=== PATIENT | male | born 1960 | race Caucasian/White ===

== ENCOUNTER 2020-06-02 06:48 | Outpatient (NON) | payer BC, SELFPAY ==
[2020-06-02 11:50] LABS: Influenza Control Positive
[2020-06-02 23:39] LABS: SARS-CoV-2 RNA PCR Negative
== END 2020-06-02 06:49 ==
PROVIDERS: PCP Family Medicine; Visit Provider Family Medicine
DX: R05 Cough (principal); Z20.822 Contact with and (suspected) exposure to COVID-19
CPT/HCPCS: 87804; C9803; U0003

== ENCOUNTER 2020-06-23 01:29 | Outpatient (CLI) | payer BC, SELFPAY ==
[2020-06-23 18:46] LABS: SARS-CoV-2 RNA PCR Negative
== END 2020-06-23 01:30 | disposition home or self-care (01) ==
LOC: ANHCOVIDDT 01:29
PROVIDERS: PCP Family Medicine; Visit Provider Internal Medicine Gastroenterology
DX: Z01.812 Encounter for preprocedural laboratory examination (principal); Z20.822 Contact with and (suspected) exposure to COVID-19
CPT/HCPCS: C9803; U0003; U0005

== ENCOUNTER 2020-06-27 01:21 | Day surgery (SDC) | payer BC, SELFPAY ==
[2020-06-19 10:03] VITALS: BMI 36.8
--- NOTE | 2020-06-27 09:45 | P.PNAN_ITS ---
Anes - Initial Pre Proc Eval Procedure: Operation Date: 06/27/20 11:45 Proposed Procedures p Esophagogastroduodenoscopy - Veto Altamirano MD Date/Time: 06/27/20 09:45 Surgeon: Veto Altamirano MD Pre Op Diagnosis: GERD Patient Data Age: 59 Gender: M Height: 1.75 m Weight: 113 kg Allergies Allergy/AdvReac Type Severity Reaction Status Date / Time epinephrine Allergy Unknown Syncope Verified 06/27/20 10:38 Home Medications Medication Instructions Recorded Confirmed Type albuterol sulfate 90 mcg/actuation 1 puff INHALATION Q4H PRN #8.5 gm 06/13/19 06/27/20 Rx aerosol inhaler budesonide-formoterol HFA 80 2 inh INHALATION Q12H #10.2 gm 05/21/20 06/27/20 Rx mcg-4.5 mcg/actuation aerosol inhaler fluoxetine [Prozac] 60 mg PO DAILY 06/19/20 06/27/20 History omeprazole 40 mg PO BID 06/19/20 06/27/20 History Patient hx anesthesia problems: none Family hx anesthesia problems: none [facility] Past Medical History Medical History (Updated 06/27/20 @ 09:46 by Cecil Heck MD) Asthma, moderate persistent Depression GERD (gastroesophageal reflux disease) Obesity DIEGO on CPAP Surgical History Surgical History H/O hernia repair History of laparoscopic cholecystectomy Family History Family History Mother Family history of Alzheimer's disease Family history of emphysema Other Diabetes mellitus Social History Social History Smoking status: Never smoker Second hand tobacco smoke exposure: No Alcohol intake: never Substance use: never Substance use type: does not use Living arrangements: with family Gender identity (if verbalized by the patient): Male Spiritual care concerns: No Anes - Eval Final PreProcedure Day of Procedure 06/27/20 09:45 Patient weight: obese Heart: regular rate and rhythm Lungs: clear to auscultation and normal air movement Airway: Mallampati scale class II Neurological: alert and oriented Last oral intake: >/= 8 hours ASA classification: III Emergent: no Anesthetic plan: proceed Anesthesia type and monitoring: general GIVS Informed Consent: The patient's anesthetic plan and its attendant risks and benefits were discussed with the patient/family/POA. Questions were solicited and answers provided to the satisfaction of the patient/family/POA.
[2020-06-27 10:39] VITALS: BP 132/88; PULSE 69; RESP 18; TEMP 36.2; O2SAT 99
[2020-06-27] MEDS: LACTATED RINGERS 1,000 ML 150 ML IV CONT (10:47)
--- NOTE | 2020-06-27 11:50 | WPDHPUPDATE1 ---
History and Physical Update Update Date/Time: 06/27/20 11:50 History and Physical has been reviewed, including an updated exam of the patient. There are NO changes in the patient's condition. Risks, benefits, and alternatives have been discussed and questions answered. Patient agrees to proceed with procedure.
[2020-06-27 12:03] VITALS: BP 112/75; PULSE 80; RESP 22; O2SAT 96
[2020-06-27 12:13] VITALS: BP 130/87; PULSE 68; RESP 22; O2SAT 97
[2020-06-27 12:23] VITALS: BP 132/87; PULSE 62; RESP 20; O2SAT 99
== END 2020-06-27 12:32 | disposition home or self-care (01) ==
PROVIDERS: Visit Provider Internal Medicine Gastroenterology
PROC: 0DJ08ZZ Inspection of Upper Intestinal Tract, Via Natural or Artificial Opening Endoscopic (ICD-10-PCS; CPT 43235; principal; 2020-06-27 11:45)
DX: K21.9 Gastro-esophageal reflux disease without esophagitis (principal); K29.50 Unspecified chronic gastritis without bleeding; K44.9 Diaphragmatic hernia without obstruction or gangrene; Z79.51 Long term (current) use of inhaled steroids; F32.9 Major depressive disorder, single episode, unspecified; G47.33 Obstructive sleep apnea (adult) (pediatric); J45.909 Unspecified asthma, uncomplicated; E66.9 Obesity, unspecified; Z68.36 Body mass index [BMI] 36.0-36.9, adult
CPT/HCPCS: 43239; 88305; J2704; J7120

== ENCOUNTER 2021-03-06 09:35 | Outpatient (CLI) | payer BC, SELFPAY ==
--- NOTE | ~2021-03-06 | XR_ITS ---
XR chest 2V DATE: 03/06/2021 09:50 INDICATION: Cough. Asthma. TECHNIQUE: PA and lateral views COMPARISON: None FINDINGS: Minimal bibasilar atelectasis is suggested. Heart size is within normal limits. No hilar or mediastinal enlargement. No pleural effusion or pulmo nary vascular congestion or pneumothorax. Diffuse osteopenia. IMPRESSION: Minimal bibasilar atelectasis . Reviewed, dictated and finalized at location B.
[2021-03-06 10:19] LABS: Basophils Absolute Auto 0.1 K/mm3 (0.0-0.1); Basophils Percent Auto 0.7 % (0.2-1.2); Eosinophils Absolute Auto 0.2 K/mm3 (0-0.3); Eosinophils Percent Auto 2.5 % (0-4.4); Hematocrit 44.1 % (42.0-52.0); Hemoglobin 14.7 g/dL (14.0-18.0); Immature Granulocyte Absolute 0.03 K/mm3 (0.00-0.031); Immature Granulocyte Percent A 0.4 % (0-0.5); Lymphocytes Absolute Auto 1.27 K/mm3 (0.9-3.2); Lymphocytes Percent Auto 16.5 % (18.3-44.2); Mean Corpuscular HGB Conc 33.3 g/dl (32-36); Mean Corpuscular Hemoglobin 30.4 pg (26-34); Mean Corpuscular Volume 91.3 fl (80-100); Mean Platelet Volume 10.1 fl (7.4-10.4); Monocytes Absolute Auto 0.6 K/mm3 (0.1-0.6); Monocytes Percent Auto 8.1 % (2.6-8.5); Neutrophils Absolute Auto 5.5 K/mm3 (1.3-6.7); Neutrophils Percent Auto 71.8 % (45.5-73.1); Platelet Count Result 271 k/mm3 (150-375); Red Blood Count 4.83 M/mm3 (4.6-6.20); Red Cell Distribution Width 12.8 % (11.5-14.5); White Blood Count 7.7 K/mm3 (4.5-10.0)
[2021-03-09 11:12] LABS: Alpha-1-Antitrypsin, QN 127 mg/dL (83-199)
[2021-03-11 07:10] LABS: Immunoglobulin E 91 kU/L (<=114)
== END 2021-03-06 09:36 | disposition home or self-care (01) ==
LOC: ANHLAB 09:37
PROVIDERS: PCP Family Medicine; Visit Provider Internal Medicine Critical Care Medicine
DX: J45.40 Moderate persistent asthma, uncomplicated (principal)
CPT/HCPCS: 36415; 71046; 82103; 82104; 82785; 85025

== ENCOUNTER 2021-03-25 08:33 | Outpatient (CLI) | payer BC, SELFPAY ==
--- NOTE | 2021-03-25 13:41 | WPDPFTINT ---
PFT Procedure Performed PFT Procedure Performed Spirometry with Pre/Post Bronchodilator Plethysmography (Lung Vol) Diffusing Cap (DLCO) Flow Vol Loop PFT Interpretation Lung volumes were measured with the body plethysmography method. The lung volumes are unremarkable. Spirometry showed normal expiratory flow rates and a normal FEV1 to FVC ratio 73%. Following administration of a bronchodilator there was no significant increase in the expiratory flow rates. Lung diffusion capacity is within the normal range. The flow volume loop is unremarkable. Impression: Spirometry, lung volumes, and lung diffusion capacity all within the normal range.
== END 2021-03-25 08:34 | disposition home or self-care (01) ==
PROVIDERS: PCP Family Medicine; Visit Provider Internal Medicine Critical Care Medicine
DX: J45.40 Moderate persistent asthma, uncomplicated (principal)
CPT/HCPCS: 94060; 94726; 94729

== ENCOUNTER 2021-07-30 14:35 | Outpatient (CLI) | payer BC, SELFPAY ==
--- NOTE | 2021-07-31 12:06 | WPDPFTINT ---
PFT Procedure Performed PFT Procedure Performed Spirometry with Pre/Post Bronchodilator Plethysmography (Lung Vol) Diffusing Cap (DLCO) Flow Vol Loop PFT Interpretation Lung volumes were measured with the body plethysmography method. The diminished expiratory reserve volume is due to obesity. The remainder lung volumes are unremarkable. Spirometry showed normal expiratory flow rates and a normal FEV1 to FVC ratio 73%. Following administration of a bronchodilator there was no significant change in the expiratory flow rates. Lung diffusion capacity is within the normal range. In comparison to previous study in March of 2021, spirometry, lung volumes, and lung diffusion capacity are all essentially unchanged. Impression: Spirometry, lung volumes, and lung diffusion capacity all within the normal range.
== END 2021-07-30 14:36 | disposition home or self-care (01) ==
LOC: ANHPFT 14:38
PROVIDERS: PCP Family Medicine; Visit Provider Internal Medicine Critical Care Medicine
DX: J45.40 Moderate persistent asthma, uncomplicated (principal)
CPT/HCPCS: 94060; 94726; 94729

== ENCOUNTER → 2022-06-24 09:39 | Outpatient (CLI) | payer BC, SELFPAY ==
--- NOTE | ~2022-06-24 | XR_ITS ---
EXAMINATION: XR chest 2V DATE: 06/24/2022 10:07 INDICATION: Asthma exacerbation TECHNIQUE: PA and lateral views of the chest are obtained. COMPARISON: 03/06/2021 FINDINGS: There is mild atelectasis of the left lung base. No pleural effusion or pneumothorax. The c ardiomediastinal silhouette is normal. There is moderate thoracic spondylosis. IMPRESSION: 1. Mild atelectasis of the left lung base. Reviewed, dictated and finalized at location L. [facility] [employer]
== END ==
PROVIDERS: PCP Family Medicine; Visit Provider Physician Assistant Medical
DX: J45.901 Unspecified asthma with (acute) exacerbation (principal)
CPT/HCPCS: 71046

== ENCOUNTER 2022-12-08 04:02 | Day surgery (SDC) | payer BC, SELFPAY ==
[2022-11-27 13:39] VITALS: BMI 31.6
[2022-12-08 08:40] VITALS: BP 121/79; PULSE 93; RESP 18; TEMP 36.6; O2SAT 100; BMI 31.1
[2022-12-08] MEDS: LACTATED RINGERS 1,000 ML 150 ML IV CONT (09:02)
--- NOTE | 2022-12-08 09:09 | WPDANESEPPF ---
Anes - Initial Pre Proc Eval Procedure: Operation Date: 12/08/22 10:00 Proposed Procedures p Screening Colonoscopy - Veto Altamirano MD Date/Time: 12/08/22 09:09 Surgeon: Veto Altamirano MD Pre Op Diagnosis: neoplasm screening Patient Data Age: 62 Gender: M Height: 1.78 m Weight: 98.4 kg Last Vital Signs Temp 97.8 F 12/08/22 08:40 Pulse 93 12/08/22 08:40 Resp 18 12/08/22 08:40 BP 121/79 12/08/22 08:40 Pulse Ox 100 12/08/22 08:40 O2 Del Method Room Air 12/08/22 08:40 Allergies Allergy/AdvReac Type Severity Reaction Status Date / Time epinephrine Allergy Unknown Syncope Verified 11/13/22 11:55 Home Medications Medication Instructions Recorded Confirmed Type omeprazole 20 mg capsule,delayed 20 mg PO BID #90 caps 11/01/20 11/27/22 Rx release sildenafil 100 mg tablet (Viagra) 100 mg PO DAILY PRN sexual 02/04/21 11/27/22 Rx activity #8 tabs cholecalciferol (vitamin D3) 25 25 mcg PO DAILY 07/11/21 11/27/22 History mcg (1,000 unit) chewable tablet (Vitamin D3) montelukast 10 mg tablet 10 mg PO DAILY #90 tabs 02/13/22 11/27/22 Rx (Singulair) budesonide-formoterol HFA 160 2 puff inhalation BID 90 days 05/20/22 11/27/22 Rx mcg-4.5 mcg/actuation aerosol #30.6 grams inhaler (Symbicort) albuterol sulfate 90 mcg/actuation 1 puff inhalation Q4H PRN 06/10/22 11/27/22 Rx aerosol inhaler (ProAir HFA) shortness of breath #8.5 grams albuterol sulfate 2.5 mg/3 mL 2.5 mg (3 mL) inhalation Q4-6H PRN 06/24/22 11/27/22 Rx (0.083 %) solution for nebulization shortness of breath or wheezing #180 mL fluoxetine 20 mg capsule (Prozac) 20 mg PO DAILY #90 caps 09/24/22 11/27/22 Rx alprazolam 0.5 mg tablet 0.5 mg PO TID #30 tabs 10/10/22 11/27/22 Rx hydroxyzine HCl 25 mg tablet 25 mg PO TID PRN itching #90 tabs 11/02/22 11/27/22 Rx trazodone 50 mg tablet 50 mg PO QHS PRN insomnia #30 tabs 11/02/22 11/27/22 Rx amphetamine 9.4 mg extended 9.4 mg PO DAILY 11/04/22 11/27/22 History release-disintegrating 24 hr tablet (Adzenys XR-ODT) Patient hx anesthesia problems: none Family hx anesthesia problems: none Results Review: All pre-operative results and documents have been reviewed as part of the pre-operative evaluation. [facility] Past Medical History Medical History (Updated 06/24/22 @ 09:07 by Arlene Cherry PA-C) Asthma exacerbation Asthma, moderate persistent Depression GERD (gastroesophageal reflux disease) Obesity DIEGO on CPAP PVC's (premature ventricular contractions) Surgical History Surgical History H/O hernia repair H/O knee surgery Torn meniscus, Repair November 2021 History of laparoscopic cholecystectomy Family History Family History Mother Family history of Alzheimer's disease Family history of emphysema Son Colon cancer Other Diabetes mellitus Social History Social History Smoking status: Never smoker Second hand tobacco smoke exposure: No Alcohol intake: never Substance use: never Substance use type: does not use Lack of Transportation: No Lack of Food: Never True Current Housing: I Have Housing Concerned About Future Housing: No Difficulty Paying Gas/Electric Bills: No Difficulty Paying for Meds: No Currently Unemployed: No Education: Bachelor's Degree Difficulty w/ Childcare or Family Care: No Living arrangements: with family Occupation/Education: retired Gender identity (if verbalized by the patient): Male Spiritual care concerns: No Anes - Eval Final PreProcedure Day of Procedure 12/08/22 09:09 Patient weight: normal Heart: regular rate and rhythm Lungs: clear to auscultation Airway: Mallampati scale class II Neurological: alert and oriented Last oral intake: >/= 8 hours ASA classif
--- NOTE | 2022-12-08 09:29 | PM.HPGS ---
History of Present Illness History of Present Illness Consent: Risks, benefits, and alternatives have been discussed and questions answered. Patient agrees to proceed with procedure. Chief complaint: neoplasm screening Narrative: Carlo Jesus is a 62 year old male with last colonoscopy 5 years ago, son had colon cancer at 30's, had 2 months on alternating diarrhea and constipation now better, used imodium. Review of Systems Constitutional: Constitutional: Denies headache(s) and Denies weakness Eyes: Eyes: Denies blurry vision ENT: Reports Normal hearing present, Denies headache(s) and Denies neck pain Cardiovascular: Cardiovascular: Denies chest pain and Denies dyspnea Respiratory: Respiratory: Denies dyspnea Gastrointestinal: Gastrointestinal: Reports no additional gastrointestinal complaints Genitourinary: Genitourinary: Denies dysuria Musculoskeletal: Musculoskeletal: Denies neck pain Integumentary/Breasts: Skin/Breast: Denies dry skin Neurologic: Reports Normal hearing present, Denies headache(s) and Denies weakness Psychiatric: Psychiatric: Denies anxiety Endocrine: Endocrine: Denies change in body appearance Hematologic/Lymphatic: Hematologic/Lymphatic: Denies easy bleeding Allergic/Immunologic: Allergic/Immunologic: Denies urticaria PMFSH Past Medical History Medical History (Updated 12/08/22 @ 09:30 by Veto Altamirano MD) Alternating constipation and diarrhea Asthma exacerbation Asthma, moderate persistent Depression Family history of colon cancer GERD (gastroesophageal reflux disease) Obesity DIEGO on CPAP PVC's (premature ventricular contractions) Surgical History Surgical History H/O hernia repair H/O knee surgery Torn meniscus, Repair November 2021 History of laparoscopic cholecystectomy Family History Family History Mother Family history of Alzheimer's disease Family history of emphysema Son Colon cancer Other Diabetes mellitus Social History Social History Smoking status: Never smoker Second hand tobacco smoke exposure: No Alcohol intake: never Substance use: never Substance use type: does not use Lack of Transportation: No Lack of Food: Never True Current Housing: I Have Housing Concerned About Future Housing: No Difficulty Paying Gas/Electric Bills: No Difficulty Paying for Meds: No Currently Unemployed: No Education: Bachelor's Degree Difficulty w/ Childcare or Family Care: No Living arrangements: with family Occupation/Education: retired Gender identity (if verbalized by the patient): Male Spiritual care concerns: No Meds Home Medications and Allergies Home Medications Medication Instructions Recorded Confirmed Type omeprazole 20 mg capsule,delayed 20 mg PO BID #90 caps 11/01/20 11/27/22 Rx release sildenafil 100 mg tablet (Viagra) 100 mg PO DAILY PRN sexual 02/04/21 11/27/22 Rx activity #8 tabs cholecalciferol (vitamin D3) 25 25 mcg PO DAILY 07/11/21 11/27/22 History mcg (1,000 unit) chewable tablet (Vitamin D3) montelukast 10 mg tablet 10 mg PO DAILY #90 tabs 02/13/22 11/27/22 Rx (Singulair) budesonide-formoterol HFA 160 2 puff inhalation BID 90 days 05/20/22 11/27/22 Rx mcg-4.5 mcg/actuation aerosol #30.6 grams inhaler (Symbicort) albuterol sulfate 90 mcg/actuation 1 puff inhalation Q4H PRN 06/10/22 11/27/22 Rx aerosol inhaler (ProAir HFA) shortness of breath #8.5 grams albuterol sulfate 2.5 mg/3 mL 2.5 mg (3 mL) inhalation Q4-6H PRN 06/24/22 11/27/22 Rx (0.083 %) solution for nebulization shortness of breath or wheezing #180 mL fluoxetine 20 mg capsule (Prozac) 20 mg PO DAILY #90 caps 09/24/22 11/27/22 Rx alprazolam 0.5 mg tablet 0.5 mg PO TID #30 tabs 10/10/22 11/27/22 Rx hydroxyzine HCl 25 mg
[2022-12-08 09:51] VITALS: BP 113/67; PULSE 75; RESP 22; O2SAT 98
[2022-12-08 10:01] VITALS: BP 114/63; PULSE 71; RESP 22; O2SAT 98
[2022-12-08 10:11] VITALS: BP 120/72; PULSE 63; RESP 22; O2SAT 96
== END 2022-12-08 10:20 | disposition home or self-care (01) ==
PROVIDERS: PCP Family Medicine; Visit Provider Internal Medicine Gastroenterology
PROC: 0DJD8ZZ Inspection of Lower Intestinal Tract, Via Natural or Artificial Opening Endoscopic (ICD-10-PCS; CPT 45378; principal; 2022-12-08 10:00)
DX: Z12.11 Encounter for screening for malignant neoplasm of colon (principal); R19.7 Diarrhea, unspecified; K59.00 Constipation, unspecified; K57.30 Diverticulosis of large intestine without perforation or abscess without bleeding; D12.0 Benign neoplasm of cecum; Z80.0 Family history of malignant neoplasm of digestive organs; Z79.51 Long term (current) use of inhaled steroids; J45.40 Moderate persistent asthma, uncomplicated; F32.A Depression, unspecified; K21.9 Gastro-esophageal reflux disease without esophagitis; G47.33 Obstructive sleep apnea (adult) (pediatric); I49.3 Ventricular premature depolarization; E66.9 Obesity, unspecified; Z68.31 Body mass index [BMI] 31.0-31.9, adult
CPT/HCPCS: 45380; 45385; 88305; J2704; J7120